=== PATIENT | female | born 1980 | race Caucasian/White ===

== ENCOUNTER → 2016-11-02 | Outpatient (CLI) | payer OTHER ==
[~2016-11-02] MED LIST: IBUP-1050 PO; PRENTAB26 PO
== END ==
LOC: C.PATHSPEC 17:48
PROVIDERS: ATTEND Plastic Surgery
DX: D23.39 Other benign neoplasm of skin of other parts of face (principal)

== ENCOUNTER → 2017-01-12 | Outpatient (CLI) | payer OTHER | END | disposition home or self-care (01) | LOC: C.PAPS 12:37 | PROVIDERS: ATTEND Obstetrics & Gynecology | DX: Z12.4 Encounter for screening for malignant neoplasm of cervix (principal) ==